=== PATIENT | male | born 1955 | race Caucasian/White ===

== ENCOUNTER 2024-04-25 07:42 | Day surgery (SDC) | payer OTHER ==
[2024-04-25] MEDS ORDERED: Sodium Chloride 0.9(Preservative Free) 10 ML IJ ONE (07:43)
[2024-04-25] MEDS ORDERED: Decadron 4 MG INJ IV ONE (07:43)
[2024-04-25] MEDS ORDERED: LIDOCAINE HCL 1% AMPUL 5 ML IJ ONE (07:43)
[2024-04-25] MEDS ORDERED: DIPRIVAN 200 MG/20 ML IV ONE ×2 (09:11→09:19)
--- NOTE | 2024-04-25 11:13 | XRAY ---
Indication: Right L4-S1 transforaminal SHANICE. Intraoperative fluoroscopy provided for 52 seconds. 5 digital spot image submitted for interpretation demonstrates posterior needle tips projecting over expected right L4 and L5 nerve roots. Small amount of contrast injected for needle tip placement. Correlate with intraoperative findings/report.
--- NOTE | 2024-04-25 11:14 | XRAY ---
Indication: Right piriformis injection. Intraoperative fluoroscopy provided for 6 seconds. Single digital spot image submitted for interpretation demonstrates posterior needle tip projecting over right piriformis. Small amount of contrast injected for needle tip placement. Correlate with intraoperative findings/report.
--- NOTE | 2024-04-25 11:33 | XRAY ---
52 seconds of fluoroscopy was used in surgery for a right L4-S1 transforaminal SHANICE.
--- NOTE | 2024-04-25 11:33 | XRAY ---
6 seconds of fluoroscopy was used in surgery for a right piriformis injection.
== END 2024-04-25 09:48 | disposition home or self-care (01) ==
LOC: SDC-PAIN 07:42
PROVIDERS: ATTEND Psychiatry & Neurology Pain Medicine
DX: M54.16 Radiculopathy, lumbar region (principal); R73.03 Prediabetes; M79.18 Myalgia, other site
CPT/HCPCS: 20552; 64483; 64484; 72100; 72170; 77002; 77003; 82947; J1100; J2704; Q9966

== ENCOUNTER 2024-06-20 08:18 | Day surgery (SDC) | payer OTHER ==
[2024-06-20] MEDS ORDERED: methylPREDNISolone acetate IM ONE (08:19)
[2024-06-20] MEDS ORDERED: Sodium Chloride 0.9(Preservative Free) 10 ML IJ ONE (08:19)
[2024-06-20] MEDS ORDERED: Reglan 10 MG/2 ML ONE (08:54)
[2024-06-20] MEDS ORDERED: propofoL IV ONE (10:22)
--- NOTE | 2024-06-20 11:47 | XRAY ---
Indication: Caudal SHANICE. Intraoperative fluoroscopy provided for 19 seconds. 3 digital spot image submitted for interpretation demonstrates caudal needle tip projecting mid sacrum. Small amount of contrast injected for needle tip placement.. Correlate with intraoperative findings/report.
--- NOTE | 2024-06-20 12:17 | XRAY ---
19 seconds of fluoroscopy was used in surgery for a caudal SHANICE.
== END 2024-06-20 11:00 | disposition home or self-care (01) ==
LOC: SDC-PAIN 08:18
PROVIDERS: ATTEND Psychiatry & Neurology Pain Medicine
DX: M54.16 Radiculopathy, lumbar region (principal); R73.03 Prediabetes
CPT/HCPCS: 62323; 72220; 77003; 82947; J1010; J2704; Q9966